=== PATIENT | female | born 1935 | race Caucasian/White ===

== ENCOUNTER → 2020-03-15 | Day surgery (SDC) | payer MEDICARE, OTHER ==
[2020-03-11 11:16] LABS: BASOPHILS # (AUTO) 0.1 (0.0-0.1); BASOPHILS % 0.5 % (0.0-1.0); EOSINOPHILS # (AUTO) 0.2 (0.0-0.4); EOSINOPHILS % 1.1 % (0.0-6.0); HEMATOCRIT 38.3 % (34.2-44.1); LYMPHOCYTES # (AUTO) 2.3 (1.0-3.2); MEAN CORPUSCULAR HEMOGLOBIN 26.4 pg (28-32); MEAN CORPUSCULAR HGB CONC 31.3 g/dL (31-35); MEAN CORPUSCULAR VOLUME 84.2 fL (81-99); MONOCYTES # (AUTO) 1.2 (0.2-0.8); MONOCYTES % 6.5 % (4.4-11.3); NEUTROPHILS # (AUTO) 13.9 (2.1-6.9); PLATELET COUNT 479 x10e3/uL (140-360); RED BLOOD COUNT 4.55 x10e6/uL (3.6-5.1); RED CELL DISTRIBUTION WIDTH 16.1 % (11.7-14.4)
--- NOTE | 2020-03-11 11:20 | Diagnostic Imaging Report ---
Exam: PA and lateral chest radiograph Clinical history: Preoperative clearance Findings: There is no evidence of pulmonary consolidation, pleural effusion, or pneumothorax. The cardiac size is within normal limits. Severe dextroscoliosis of the thoracic spine is noted with its apex at the T8-T9 level. Impression: 1. No radiographic evidence of acute cardiorespiratory disease. Scoliosis of the thoracic spine noted. Signed by: Dr. Ozzy Caballero MD on 03/11/2020 11:17 AM
[2020-03-11 11:35] LABS: ANION GAP 16.1 mmol/L (8-16); BLOOD UREA NITROGEN 16 mg/dL (7-26); BUN/CREATININE RATIO 20 (6-25); CALCIUM 10.1 mg/dL (8.4-10.2); CARBON DIOXIDE 22 mmol/L (22-29); CHLORIDE 100 mmol/L (98-107); CREATININE, SERUM 0.81 mg/dL (0.57-1.11); EST GLOMERULAR FILTRATION RATE > 60 ML/MIN (60-); GLUCOSE 112 mg/dL (74-118); POTASSIUM 4.1 mmol/L (3.5-5.1); SODIUM 134 mmol/L (136-145)
[~2020-03-15] MED LIST: ASPIR 8181 MG PO; ASPIRIN325 MG PO; BUPIVACAINE HCL 0.5% INJ 30 ML VIAL INJ ONE; CALCIUM 600 +1 EAC1 PO; CALCIUM PO; FISH OIL 1,0001 EAC2 PO; HAIR, SKIN & N1 EACH; HAIR, SKIN & N1 EACH PO; IOPAMIDOL 300MG/ML 50ML INFUS..BTL IV ONE; L-LYSINE500 M2 PO; LIDOCAINE HCL 1% LOCAL INJ 20 ML VIAL ONE; LIDOCAINE HCL 2% LOCAL INJ 5 ML SDV VIAL INJ ONE; LISINOPRIL2.5 MG PO; MAGNESIUM PO; METOPROLOL SUCC25 MG PO; OSTEO BI-FLEX1 EAC2 PO; PRAMIPEXOLE D0.25 MG PO; PROPOFOL IV EMULSION 10 MG/ML 20 ML VIAL ONE; RYTARY ER 48.71 EACH PO; SIMVASTATIN40 MG PO; SUPER B COMPLE1 EACH PO; TRIAMCINOLONE ACET 40 MG/ML VIAL ONE; TRIAMTERENE-HCTZ1 EA PO; VITAMIN C1000 MG PO; VITAMIN D31000 UNIT PO; ZINC PO
[2020-03-15 08:05] VITALS: BP 126/74
[2020-03-15 09:34] LABS: BODY FLUID APPEARANCE TURBID; BODY FLUID COLOR RED
[2020-03-15 09:35] LABS: RBC,BODY FLUID 100100 cells/uL; WBC,BODY FLUID 1980 cells/uL
--- NOTE | 2020-03-15 09:52 | Diagnostic Imaging Report ---
OR Fluoroscopy: IMPRESSION: Fluoroscopy service provided in the OR. Interpretation not requested. Signed by: Zak Bay MD on 03/15/2020 9:48 AM
[2020-03-15 10:23] LABS: EOSINOPHILS,BODY FLUID 2 %; LYMPHOCYTES,BODY FLUID 37 %; MONO/MACROPHG,BODY FLUID 25 %; NEUTROPHILS,BODY FLUID 36 %
--- NOTE | 2020-03-15 10:44 | Operative Report ---
DATE OF PROCEDURE: 03/15/2020 SURGEON: Christian Ochoa MD PREOPERATIVE DIAGNOSIS: Presence of left total hip arthroplasty. POSTOPERATIVE DIAGNOSIS: Presence of left total hip arthroplasty. PROCEDURE: Left hip aspiration under fluoroscopy. INDICATIONS: The patient is an 84-year-old lady, who has some left pelvic girdle pain. She is status post a left total hip replacement. She was sent for inflammatory blood work, which was elevated. We have recommended a left hip aspiration under fluoroscopy. The reasons and the associated risks and benefits of all been discussed with the patient and her daughter. They state they understand and wish to proceed. PROCEDURE IN DETAIL: The patient was brought to the procedure room and given a MAC anesthetic. Her left hip was prepped and draped in a sterile manner. A preoperative time-out was performed. Using a C-arm image intensifier, a spinal needle was placed into the inferior recess of the hip joint. About 3 mL of blood-tinged synovial fluid was aspirated. There was no chloe purulence, whatsoever. The fluid was sent for culture and cell count. A Band-Aid was applied. The patient was transported to the recovery room in stable condition. There was no blood loss. Christian Ochoa MD DR/SELINAL /[id number]
== END | disposition home or self-care (01) ==
LOC: OR 05:45
PROVIDERS: ATTEND Specialist
DX: T84.84XA Pain due to internal orthopedic prosthetic devices, implants and grafts, initial encounter (principal); I10 Essential (primary) hypertension; E78.5 Hyperlipidemia, unspecified; G20 Parkinson's disease; Y83.1 Surgical operation with implant of artificial internal device as the cause of abnormal reaction of the patient, or of later complication, without mention of misadventure at the time of the procedure; Z01.810 Encounter for preprocedural cardiovascular examination; Z01.812 Encounter for preprocedural laboratory examination; Z01.818 Encounter for other preprocedural examination; Z11.59 Encounter for screening for other viral diseases; Z79.82 Long term (current) use of aspirin
CPT/HCPCS: 20610; 36415 ×2; 71046; 77002; 80048; 85025; 87071; 87075; 87205; 87635; 89051; 93005; J2001; J2704; Q9967; 76000; J3301